=== PATIENT | male | born 1975 | race African-American/Black ===

== ENCOUNTER 2016-11-28 07:29 | Emergency (ER) | payer OTHER ==
[2016-11-28 07:40] VITALS: TEMP 97.8; BMI 25.8
[2016-11-28] MEDS ORDERED: morphine CARPU-JECT 2 MG/1 ML DISP.SYRIN IM ONE ×2 (08:09→08:33)
[2016-11-28] MEDS ORDERED: morphine CARPU-JECT 2 MG/1 ML DISP.SYRIN ONE ×2 (08:11→08:34)
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
[2016-11-28] MEDS ORDERED: TETANUS AND DIPHTHERIA TOXOID 0.5 ML DISP.SYRIN IM ONE (10:26)
[2016-11-28] MEDS ORDERED: morphine CARPU-JECT 4 MG/1 ML DISP.SYRIN IVPUSH ONE (10:28)
[2016-11-28] MEDS ORDERED: morphine CARPU-JECT 4 MG/1 ML DISP.SYRIN ONE (10:45)
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
[2016-11-28 11:42] VITALS: BP 140/70; PULSE 60
== END 2016-11-28 11:42 | disposition home or self-care (01) ==
LOC: JER 07:29
PROC: 3E0234Z Introduction of Serum, Toxoid and Vaccine into Muscle, Percutaneous Approach (ICD-10-PCS; principal; 2016-11-28)
PROC: 3E023NZ Introduction of Analgesics, Hypnotics, Sedatives into Muscle, Percutaneous Approach (ICD-10-PCS; 2016-11-28)
PROC: 3E023NZ Introduction of Analgesics, Hypnotics, Sedatives into Muscle, Percutaneous Approach (ICD-10-PCS; 2016-11-28)
PROC: 3E033NZ Introduction of Analgesics, Hypnotics, Sedatives into Peripheral Vein, Percutaneous Approach (ICD-10-PCS; 2016-11-28)
DX: S99.822A Other specified injuries of left foot, initial encounter (principal); V04.10XA Pedestrian on foot injured in collision with heavy transport vehicle or bus in traffic accident, initial encounter; Y92.414 Local residential or business street as the place of occurrence of the external cause; Y93.89 Activity, other specified; Y99.8 Other external cause status
CPT/HCPCS: 73610-TC-LT; 73630-TC-LT; 73700-TC-RT; 99282-25

== ENCOUNTER 2017-07-12 19:26 | Emergency (ER) | payer OTHER ==
--- NOTE | 2017-07-12 19:45 | PDOC ---
Rapid Medical Evaluation Time Seen by Provider: 07/12/17 19:42 Medical Evaluation: Allergies Allergy/AdvReac Type Severity Reaction Status Date / Time No Known Allergies Allergy Verified 11/28/16 07:33 07/12/17 19:42 pt states "I had a seizure " today. Pt had shortness of breath, numbness to hands and feet . smoke marijuana, rarely use ETOH. no headaches. Pt denies incontinence no seizure history . denies other drug use, this occurred at 4am.
[2017-07-12 19:46] VITALS: BP 117/67; PULSE 83; TEMP 98.1; BMI 26.1
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
[2017-07-12 20:50] LABS: BASOPHIL 1.5 % (0-2.0); EOSINOPHIL 1.4 % (0-4.5); MCH 32.7 pg (25.7-33.7); MEAN CELL VOLUME 93.3 fl (80-96); MEAN PLT VOLUME 8.8 fl (7.5-11.1); NEUTROPHILS 57.1 % (42.8-82.8); PLATELET COUNT 232 K/MM3 (134-434); RDW 13.5 % (11.9-15.9); WHITE BLOOD COUNT 7.6 K/mm3 (4.0-10.0)
[2017-07-12 21:12] LABS: ALBUMIN 3.8 g/dl (3.4-5.0); ANION GAP 8 (8-16); BILIRUBIN,TOTAL 0.6 mg/dL (0.2-1.0); CALCIUM 8.9 mg/dL (8.5-10.1); CO2 29 mmol/L (21-32); CREATININE 0.9 mg/dL (0.7-1.3); GLUCOSE,RANDOM 94 mg/dL (74-106); SGOT/AST 16 U/L (15-37); SGPT/ALT 20 U/L (12-78); TOT PROT 6.7 g/dl (6.4-8.2)
[2017-07-12 21:13] LABS: ALK PHOS 77 U/L (45-117)
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
[2017-07-12 22:53] LABS: CPK 336 IU/L (39-308); TROPONIN I < 0.02 ng/ml (0.00-0.05)
[2017-07-13 00:25] LABS: URINE APPEARANCE CLEAR; URINE BILIRUBIN NEGATIVE (NEGATIVE); URINE BLOOD NEGATIVE (NEGATIVE); URINE COLOR YELLOW; URINE GLUCOSE (UA) NEGATIVE (NEGATIVE); URINE KETONE TRACE (NEGATIVE); URINE NITRITE NEGATIVE (NEGATIVE); URINE PROTEIN NEGATIVE (NEGATIVE); URINE UROBILINOGEN 4.0 E.U/dl mg/dL (0.2-1.0)
[2017-07-13 01:39] LABS: URINE MARIJUANA THC POSITIVE ng/ml (CUTOFF=50)
[2017-07-13 12:48] LABS: URINE LEUK ESTERASE Negative (NEGATIVE)
--- NOTE | 2017-07-14 07:51 | EKG ---
Test Reason : Blood Pressure : / mmHG Vent. Rate : 065 BPM Atrial Rate : 065 BPM P-R Int : 164 ms QRS Dur : 080 ms QT Int : 388 ms P-R-T Axes : 056 050 032 degrees QTc Int : 403 ms NORMAL SINUS RHYTHM NORMAL ECG NO PREVIOUS ECGS AVAILABLE Confirmed by Tommy Eldridge ([id number]) on 07/13/2017 2:47:15 PM Also confirmed by MD Chente, Tommy ([id number]), web editor TOMMY GIRON ([id number]) on 07/14/2017 7:50:46 AM Referred By: Confirmed By:Tommy Eldridge MD
== END 2017-07-13 02:15 | disposition home or self-care (01) ==
LOC: JER 19:26
DX: R55 Syncope and collapse (principal); F17.210 Nicotine dependence, cigarettes, uncomplicated
CPT/HCPCS: 36415; 70450-TC; 71020-TC; 80053; 80307; 81003; 82550; 82553; 84484; 85025; 93005; 93010; 99282-25

== ENCOUNTER 2017-12-12 01:45 | Emergency (ER) | payer OTHER ==
[2017-12-12 02:09] VITALS: BP 134/81; PULSE 82; TEMP 97.6; BMI 27.7
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
[2017-12-12] MEDS ORDERED: ACETAMINOPHEN 500 MG TABLET (FP) PO ONE (02:42)
[2017-12-12] MEDS ORDERED: ACETAMINOPHEN INJECTION 100 ML IVPB ONE (03:02)
[2017-12-12 03:04] LABS: BASO % 1.2 % (0-2.0); EOS % 3.4 % (0-4.5); HEMATOCRIT 41.5 % (35.4-49); HEMOGLOBIN 14.3 GM/dL (11.7-16.9); MCH 32.7 pg (25.7-33.7); MCHC 34.6 g/dl (32.0-35.9); MEAN CELL VOLUME 94.6 fl (80-96); MEAN PLT VOLUME 8.1 fl (7.5-11.1); MONO % 5.9 % (3.8-10.2); NEUT % 49.5 % (42.8-82.8); PLATELET COUNT 254 K/MM3 (134-434); RBC 4.38 M/mm3 (4.00-5.60); RDW 13.3 % (11.9-15.9); WHITE BLOOD COUNT 9.4 K/mm3 (4.0-10.0)
[2017-12-12 03:30] LABS: ALBUMIN 3.7 g/dl (3.4-5.0); ALK PHOS 71 U/L (45-117); ANION GAP 9 (8-16); BILIRUBIN,TOTAL 0.2 mg/dL (0.2-1.0); BLOOD UREA NITROGEN 7 mg/dL (7-18); CALCIUM 8.5 mg/dL (8.5-10.1); CHLORIDE 105 mmol/L (98-107); CO2 30 mmol/L (21-32); CREATININE 0.9 mg/dL (0.7-1.3); GLUCOSE,RANDOM 100 mg/dL (74-106); POTASSIUM 4.1 mmol/L (3.5-5.1); SGOT/AST 10 U/L (15-37); SGPT/ALT 15 U/L (12-78); SODIUM 144 mmol/L (136-145); TOT PROT 6.5 g/dl (6.4-8.2)
[2017-12-12 03:31] LABS: LIPASE 257 U/L (73-393)
[2017-12-12 04:10] LABS: COCAINE, UR POSITIVE ng/ml (CUTOFF=300); METHADONE, UR NEGATIVE ng/ml (CUTOFF=300); OPIATES, URI NEGATIVE ng/ml (CUTOFF=300); PHENCYCLIDINE,URINE NEGATIVE ng/ml (CUTOFF=25); URINE AMPHETAMINES NEGATIVE ng/ml (CUTOFF=500); URINE BARBITURATES NEGATIVE ng/ml (CUTOFF=200); URINE BENZODIAZEPINES NEGATIVE ng/ml (CUTOFF=200)
== END 2017-12-12 05:51 | disposition home or self-care (01) ==
LOC: JER 01:45
DX: G40.909 Epilepsy, unspecified, not intractable, without status epilepticus (principal); R51 Headache
CPT/HCPCS: 36415; 70450-TC; 80053; 80307; 83690; 85025; 99283-25

== ENCOUNTER 2018-05-01 14:52 | Emergency (ER) | payer OTHER ==
[2018-05-01 15:27] VITALS: TEMP 98.1; BMI 26.6
[2018-05-01 16:02] LABS: BASO % 0.3 % (0-2.0); EOS % 1.5 % (0-4.5); HEMATOCRIT 44.8 % (35.4-49); HEMOGLOBIN 15.6 GM/dL (11.7-16.9); LYMPH % 39.2 % (8-40); MCH 32.8 pg (25.7-33.7); MCHC 34.7 g/dl (32.0-35.9); MEAN CELL VOLUME 94.5 fl (80-96); MEAN PLT VOLUME 7.6 fl (7.5-11.1); MONO % 7.7 % (3.8-10.2); NEUT % 51.3 % (42.8-82.8); PLATELET COUNT 337 K/MM3 (134-434); RBC 4.74 M/mm3 (4.00-5.60); RDW 13.2 % (11.9-15.9)
--- NOTE | 2018-05-01 16:05 | PDOC ---
History of Present Illness - General Chief Complaint: Tremors Stated Complaint: FATIGUE Time Seen by Provider: 05/01/18 15:31 History Source: Patient Exam Limitations: No Limitations - History of Present Illness Initial Comments: 05/01/18 16:02 The patient is a 43M with a PMH of seizures on keppra and lamotrigine who presents to the ER with complaints of L elbow shaking and R arm shaking. The patient states that he woke up this morning and began to develop shaking in his L elbow and R arm. He is not sure what is causing his shaking and he denies any exacerbating or alleviating factors. He does admit that sometimes when he is anxious, he feels the worsening of his shaking. He denies fevers, chills, nausea , vomiting, CP, SOB, tingling, or weakness. He states that he has numbness in his hands and feet which is chronic. He admits to smoking marijuana twice a day to "help him calm down". Past History - Past Medical History Allergies/Adverse Reactions: Allergies Allergy/AdvReac Type Severity Reaction Status Date / Time No Known Allergies Allergy Verified 05/01/18 16:16 Home Medications: Ambulatory Orders Lamotrigine [Lamictal -] 200 mg PO BID 05/01/18 levETIRAcetam [Keppra -] 750 mg PO BID 05/01/18 Anemia: No Asthma: No Cancer: No Cardiac Disorders: No CVA: No COPD: No CHF: No Dementia: No Diabetes: No GI Disorders: No Disorders: Yes (colitis) HTN: No Hypercholesterolemia: No Liver Disease: No Seizures: Yes ([facility] 07/25) Thyroid Disease: No - Surgical History Cardiac Surgery: No Cholecystectomy: No Gastric Stapling: No - Immunization History Td Vaccination: Yes (2007) Immunization Up to Date: Yes - Suicide/Smoking/Psychosocial Hx Smoking Status: Yes Smoking History: Current some day smoker Years of Tobacco Use: 25 Have you smoked in the past 12 months: No Number of Cigarettes Smoked Daily: 10 Cigars Per Day: 0 Information on smoking cessation initiated: Yes 'Breaking Loose' booklet given: 04/10/15 Hx Alcohol Use: No Drug/Substance Use Hx: Yes (Marijuana) Substance Use Type: Marijuana Hx Substance Use Treatment: No Review of Systems - Review of Systems Able to Perform ROS?: Yes Comments:: 05/01/18 16:05 GENERAL/CONSTITUTIONAL: No fever or chills. No weakness. HEAD, EYES, EARS, NOSE AND THROAT: No change in vision. No ear pain or discharge. No sore throat. CARDIOVASCULAR: No chest pain, palpitations, or lightheadedness. RESPIRATORY: No cough, wheezing, shortness of breath, or hemoptysis. GASTROINTESTINAL: No nausea, vomiting, diarrhea, constipation, or abdominal pain. GENITOURINARY: No dysuria, frequency, hematuria, or change in urination. MUSCULOSKELETAL: No joint or muscle swelling or pain. No neck or back pain. SKIN: No rash or lesions. NEUROLOGIC: Positive for history or seizures and shaking. No headache, tingling , focal weakness, loss of consciousness, or change in strength/sensation. ENDOCRINE: No increased thirst. No abnormal weight change. HEMATOLOGIC/LYMPHATIC: No anemia, easy bleeding, or history of blood clots. ALLERGIC/IMMUNOLOGIC: No hives or skin allergy. Is the patient limited Scottish proficient: No *Physical Exam - Vital Signs Last Vital Signs Temp Pulse Resp BP Pulse Ox 98.1 F 78 20 103/73 100 05/01/18 15:22 05/01/18 15:22 05/01/18 15:22 05/01/18 15:22 05/01/18 15:22 - Physical Exam Comments: 05/01/18 16:07 GENERAL: Well developed, well nourished. Awake and alert. No acute distress. HEENT: Normocephalic, atraumatic. Hearing grossly normal. Moist mucous membranes. PERRLA, EOMI. No conjunctival pallor. Sclera are non-icteric. NECK: Supple. Full ROM. No JVD. CARDIOVASCULAR: Regular rate and rhythm. No murmurs, rubs, or gallops. PULMONARY: No evidence of respiratory distress. Diffuse rhonchi. ABDOMINAL: Soft. Non-tender. Non-distended. No rebound or guarding. GENITOURINARY: No CVA tenderness bilaterally. MUSCULOSKELETAL: Normal range of motion at all joints. No bony deformities or tenderness. EXTREMITIES: No cyanosis. No clubbing. No edema. No calf tenderness or swelling. SKIN: Warm and dry. Normal capillary refill. No rashes. No jaundice. NEUROLOGICAL: Alert, awake, appropriate. Cranial nerves 2-12 grossly intact. No deficits to light touch and temperature in face, upper extremities and lower extremities. 5/5 strength in deltoids, biceps, triceps, quadriceps, hamstrings, and gastrocnemius. Normal speech. Gait is normal without ataxia. PSYCHIATRIC: Cooperative. Good eye contact. Appropriate mood and affect. ED Treatment Course - LABORATORY CBC & Chemistry Diagram: 05/01/18 15:55 05/01/18 15:55 - RADIOLOGY Radiology Studies Ordered: Category Date Time Status CHEST X-RAY PORTABLE* [RAD] Stat Radiology 05/01/18 15:42 Taken Medical Decision Making - Medical Decision Making 05/01/18 16:10 The patient is a 43M with a PMH of seizures who presents to the ER with complaints of twitching in his wrist and elbows. The patient was noted to stop twitching throughout the history but occasionally twitched on my exam. He admits to taking his medications as prescribed and sees Dr. Taylor for neurology. Will order labs and CXR and d/w Dr. Taylor. 05/01/18 17:23 Dr. Taylor attempted to be reached without success. Pt stable for outpt f/u with Dr. Taylor - he states he has an appointment in 5 days and I have encouraged him to keep the appointment and f/u in our PCP clinic. *DC/Admit/Observation/Transfer Diagnosis at time of Disposition: Tremor - Discharge Dispostion Disposition: HOME Condition at time of disposition: Stable Decision to Admit order: No - Referrals Referrals: Castillo Luque MD [Staff Physician] - Richard Taylor MD [Staff Physician] - - Patient Instructions Printed Discharge Instructions: Seizure Disorder -- Adult Additional Instructions: Please follow up with our primary care clinic in 1-3 days. Keep your appointment with Dr. Taylor on Wednesday. Please return to the ER if you have any signs or symptoms of chest pain, shortness of breath, uncontrollable fever, chills, nausea, vomiting, numbness, tingling, or weakness in any part of your body, changes in vision, or slurred speech. Please take your medications as prescribed. Please return to the ER if symptoms persist, worsen, or new symptoms arise. - Post Discharge Activity
--- NOTE | 2018-05-01 16:21 | PDOC ---
Attending Attestation - Resident Resident Name: CornellcoryNehemias - ED Attending Attestation I have performed the following: I have examined & evaluated the patient, The case was reviewed & discussed with the resident, I agree w/resident's findings & plan, Exceptions are as noted - HPI HPI: 05/01/18 16:17 43-year-old male history of seizure disorder and substance abuse here today complaining of shaking. Patient states he woke up this morning with right arm L Beatriz handshaking he did smoke some leave that may help with the anxiety and tremor. Denies any other drug use has been compliant with his antiepileptics. No seizure-like activity no fevers no chills no other current complaints he follows up neurologist Dr. Kitchen - Physicial Exam PE: 05/01/18 16:17 Patient is sleeping on exam but arousable to voice lungs are clear bilaterally heart is regular without any murmurs rubs or gallops abdomen is soft nontender skin is warm and dry extremities are warm well perfused neurologically the patient is alert and oriented 3 he has 5 out of 5 muscle strength in all 4 extremities there is no appreciated resting tremor or intention tremor noted on exam speech is clear - Medical Decision Making 05/01/18 16:18 Differential diagnosis include side effect of drug use, electrolyte abnormality anxiety hypoglycemia or dehydration plan CBC CMP tox screen EKG IV hydration. If all normal vision currently has no persistent tremor will likely discharge home to follow up with Dr. Kitchen
[2018-05-01 16:32] LABS: ALK PHOS 79 U/L (45-117); ANION GAP 4 MMOL/L (8-16); BILIRUBIN,TOTAL 0.4 mg/dL (0.2-1); BLOOD UREA NITROGEN 10 mg/dL (7-18); CALCIUM 9.1 mg/dL (8.5-10.1); CHLORIDE 105 mmol/L (98-107); CO2 31 mmol/L (21-32); CREATININE 1.1 mg/dL (0.55-1.3); GLUCOSE,RANDOM 62 mg/dL (74-106); POTASSIUM 4.1 mmol/L (3.5-5.1); SGOT/AST 18 U/L (15-37); SGPT/ALT 18 U/L (13-61); SODIUM 140 mmol/L (136-145); TOT PROT 7.6 g/dl (6.4-8.2)
[2018-05-01 17:38] VITALS: BP 118/75; PULSE 68
== END 2018-05-01 17:37 | disposition home or self-care (01) ==
LOC: JER 14:52
DX: R25.1 Tremor, unspecified (principal); G40.909 Epilepsy, unspecified, not intractable, without status epilepticus
CPT/HCPCS: 36415; 71045-TC-FY; 80053; 80175; 85025; 99282-25

== ENCOUNTER 2018-09-05 15:41 | Emergency (ER) | payer SELFPAY ==
[2018-09-05 15:50] VITALS: BMI 31.3
--- NOTE | 2018-09-05 16:54 | PDOC ---
History of Present Illness - General Chief Complaint: Seizure Stated Complaint: Seizure Time Seen by Provider: 09/05/18 16:42 History Source: Patient Exam Limitations: No Limitations, Clinical Condition - History of Present Illness Initial Comments: Jarrod is a 43 yo M w a pmh of seizures on Keppra and lamotrigine who presents to the ER vi EMS stating he is having non-stop seizures all day. He reports his arms, back, head, neck, and legs are all seizing and he is experiencing significant pain because of it. This patient sits still and then when he gets the attention of a doctor he starts "seizing." He shakes his arms and legs when a doctor is looking but when a doctor turns away he stops shaking. He denies fevers, chills, nausea, vomiting, CP, SOB, tingling, or weakness. He states that he has numbness in his hands and feet which is chronic. He admits to smoking marijuana twice a day to "help him calm down". Neurologist: Dr. Aron Joel Hx: Smokes marijuana, denies alcohol or other illicit substances. Allergies: NKA, NKDA PSH: None reported Past History - Past Medical History Allergies/Adverse Reactions: Allergies Allergy/AdvReac Type Severity Reaction Status Date / Time No Known Allergies Allergy Verified 09/05/18 15:50 Home Medications: Ambulatory Orders Lamotrigine [Lamictal -] 200 mg PO BID 05/01/18 levETIRAcetam [Keppra -] 750 mg PO BID 05/01/18 Anemia: No Asthma: No Cancer: No Cardiac Disorders: No CVA: No COPD: No CHF: No Dementia: No Diabetes: No GI Disorders: No Disorders: Yes (colitis) HTN: No Hypercholesterolemia: No Liver Disease: No Psychiatric Problems: Yes (depression, anxiety, suicidal ideation) Seizures: Yes Thyroid Disease: No - Surgical History Cardiac Surgery: No Cholecystectomy: No Gastric Stapling: No - Immunization History Td Vaccination: Yes (2007) Immunization Up to Date: Yes - Suicide/Smoking/Psychosocial Hx Smoking Status: Yes Smoking History: Current every day smoker Years of Tobacco Use: 25 Have you smoked in the past 12 months: No Number of Cigarettes Smoked Daily: 10 Cigars Per Day: 0 Information on smoking cessation initiated: No 'Breaking Loose' booklet given: 04/10/15 Hx Alcohol Use: No Drug/Substance Use Hx: Yes (marijuana) Substance Use Type: Marijuana Hx Substance Use Treatment: No Review of Systems - Review of Systems Able to Perform ROS?: Yes Comments:: CONSTITUTIONAL: Absent: fever, no chills, no fatigue EYES: Absent: visual changes ENT: Absent: ear pain, no sore throat CARDIOVASCULAR: Absent: chest pain, no palpitations RESPIRATORY: Absent: cough, no SOB GI: Absent: abdominal pain, no nausea, no vomiting, no constipation, no diarrhea GENITOURINARY: Absent: dysuria, no frequency, no hematuria MUSKULOSKELETAL: Absent: back pain, no arthralgia, no myalgia SKIN: Absent: rash NEURO: Absent: headache *Physical Exam - Vital Signs Last Vital Signs Temp Pulse Resp BP Pulse Ox 97 F L 76 16 132/80 100 09/05/18 15:45 09/05/18 15:45 09/05/18 15:45 09/05/18 15:45 09/05/18 15:45 - Physical Exam Comments: GENERAL: Well-appearing, well-nourished. No apparent distress. HEENT: Normocephalic, atraumatic. PERRL, EOM intact. CARDIOVASCULAR: Normal S1, S2. Regular rate and rhythm. PULMONARY: Clear to auscultation bilaterally. ABDOMEN: Soft, non-distended, non-tender. EXTREMITIES: Normal ROM in all four extremities. No gross deformities. SKIN: Warm, dry. No rash NEUROLOGICAL: No focal neurological deficits. Moderate Sedation - Procedure Monitoring Vital Signs: Procedure Monitoring Vital Signs Temperature 97 F L 09/05/18 15:45 Pulse Rate 76 09/05/18 15:45 Respiratory Rate 16 09/05/18 15:45 Blood Pressure 132/80 09/05/18 15:45 O2 Sat by Pulse Oximetry (%) 100 09/05/18 15:45 ED Treatment Course - LABORATORY CBC & Chemistry Diagram: 09/05/18 17:04 09/05/18 17:04 Medical Decision Making - Medical Decision Making Jarrod is a 43 yo M w a pmh of seizures on Keppra and lamotrigine who presents to the ER vi EMS stating he is having non-stop seizures all day. He reports his arms, back, head, neck, and legs are all seizing and he is experiencing significant pain because of it. DDx IBNLT: Seizures vs Pseudoseizures, malingering, infection. Plan: Cbc, Cmp, U-tox, EKG, diphenhydramine, ativan, neuroconsult, DC Labs unremarkable EKG normal sinus Spoke [facility] Dr. Taylor who agrees with current plan. He asked to get a U-tox befroe DCing patient. U-tox sent. U-tox positive only for marijuana Will DC patient. *DC/Admit/Observation/Transfer Diagnosis at time of Disposition: Pseudoseizures - Discharge Dispostion Disposition: HOME Condition at time of disposition: Stable Decision to Admit order: No - Referrals Referrals: Med Eldridge MD [Primary Care Provider] - Richard Taylor MD [Staff Physician] - - Patient Instructions Printed Discharge Instructions: DI for Seizure Disorder -- Adult, DI for Psychogenic Nonepileptic Seizures Additional Instructions: You came into the ER with pseudoseizures. Please schedule a follow up appointment with your neurologist and primary care doctor in the next 3 days. Come back to the ER if your pain worsens or you have any other new or worsening concerns. Thank you for coming to the [facility] ER. We hope you feel better soon! Print Language: KOSOVAN - Post Discharge Activity
[2018-09-05 17:49] LABS: BASO % 1.1 % (0-2.0); EOS % 0.3 % (0-4.5); HEMATOCRIT 44.6 % (35.4-49); HEMOGLOBIN 15.4 GM/dL (11.7-16.9); LYMPH % 29.4 % (8-40); MCH 32.3 pg (25.7-33.7); MCHC 34.6 g/dl (32.0-35.9); MEAN CELL VOLUME 93.5 fl (80-96); MEAN PLT VOLUME 8.3 fl (7.5-11.1); MONO % 7.1 % (3.8-10.2); NEUT % 62.1 % (42.8-82.8); PLATELET COUNT 291 K/MM3 (134-434); RBC 4.77 M/mm3 (4.00-5.60)
--- NOTE | 2018-09-05 17:58 | PDOC ---
Attending Attestation - Resident Resident Name: Ramo Fontanez - ED Attending Attestation I have performed the following: I have examined & evaluated the patient, The case was reviewed & discussed with the resident, I agree w/resident's findings & plan, Exceptions are as noted - Physicial Exam PE: 09/05/18 18:13 GENERAL: The patient is awake, alert, Nontoxic - in no acute distress. HEAD: Normocephalic, atraumatic. EYES: extraocular movements intact, sclera anicteric, conjunctiva clear. ENT: Normal voice, Moist mucous membranes. NECK: Normal range of motion, supple LUNGS: Breath sounds equal, clear to auscultation bilaterally. No wheezes, no rhonchi, no rales. HEART: Regular rate and rhythm, normal S1 and S2 without murmur, rub or gallop. ABDOMEN: Soft, nontender, normoactive bowel sounds. No guarding, no rebound. . No CVA tenderness EXTREMITIES: Normal range of motion, no edema. No clubbing or cyanosis. No cords, erythema, or tenderness. NEUROLOGICAL: No facial assymetry, Normal speech, moving all 4 extremities spontaenously and symmetricaly PSYCH: Normal mood, normal affect. SKIN: Warm, Dry, normal turgor, - Medical Decision Making 09/05/18 17:57 43y hx of seizure disorder presenting with complaint of seizure like activity. pt endorses increased pain with his extermities and movement will cause them to shake. denies any fever/chills, headache, neck pain, denies recent drug use 09/05/18 18:20 pt has had several episodes of shaking his body, and various appendages independently, shouting, punching the bed lastng for a few seconds at at omayra. he remains concious during this period. suspect pseudoseizures. will give ativan x 1 willck labs to r/o metabolic dernagement will dfer CT dw dr. servin agree with management if pt better will dc <Casey Menchaca - Last Filed: 09/05/18 18:13> - HPI HPI: 09/05/18 18:30 43y M with hx of seizure disorder (on keppra and lamotrigine) [facility], who presents to the emergency department for evaluation of seizure activity this morning. Pt reports having a seizure at his neurologist office this afternoon ( Dr. Kitchen) which is why he was sent to the ED for further evaluation. Pt reports increasing seizure activity which is why he saw his neurologist today. He reports being compliant with his seizure medications. Patient denies fever, chills, chest pain, coughing, abdominal pain, headache, vision changes, numbness /tingling/weakness, nausea, and vomiting. Pt admits to smoking marijuana earlier today, denies other drug use. Neurologist: Dr. Taylor - Medical Decision Making Documentation prepared by Daniela Travis, acting as medical assisting instructor for Casey Menchaca MD. <Daniela Travis - Last Filed: 09/05/18 18:30> Heart Score/ECG Review - ECG Impressions Comment:: 09/05/18 18:23 Twelve-lead EKG was performed and reviewed by me. There is normal sinus rhythm with a normal rate. rate of 75 The axis is normal. The intervals are normal. There is normal R wave progression There are no ST or T wave abnormalities. Impression: Normal twelve-lead EKG <Casey Menchaca - Last Filed: 09/05/18 18:13>
[2018-09-05 18:06] LABS: ALBUMIN 3.7 g/dl (3.4-5.0); ALK PHOS 78 U/L (45-117); ANION GAP 8 MMOL/L (8-16); BILIRUBIN,TOTAL 0.4 mg/dL (0.2-1); BLOOD UREA NITROGEN 8 mg/dL (7-18); CALCIUM 8.6 mg/dL (8.5-10.1); CHLORIDE 105 mmol/L (98-107); CO2 25 mmol/L (21-32); CREATININE 1.1 mg/dL (0.55-1.3); GLUCOSE,RANDOM 105 mg/dL (74-106); POTASSIUM 3.8 mmol/L (3.5-5.1); SGOT/AST 10 U/L (15-37); SGPT/ALT 16 U/L (13-61); SODIUM 138 mmol/L (136-145); TOT PROT 6.9 g/dl (6.4-8.2)
[2018-09-05] MEDS ORDERED: LORazepam 2 MG/ML SDV VIAL ONE (18:14)
[2018-09-05 21:30] LABS: COCAINE, UR NEGATIVE ng/ml (CUTOFF=300); METHADONE, UR NEGATIVE ng/ml (CUTOFF=300); OPIATES, URI NEGATIVE ng/ml (CUTOFF=300); PHENCYCLIDINE,URINE NEGATIVE ng/ml (CUTOFF=25); URINE AMPHETAMINES NEGATIVE ng/ml (CUTOFF=500); URINE BARBITURATES NEGATIVE ng/ml (CUTOFF=200); URINE BENZODIAZEPINES NEGATIVE ng/ml (CUTOFF=200)
[2018-09-05 23:38] VITALS: BP 115/58; PULSE 75; TEMP 97.9
--- NOTE | 2018-09-06 12:17 | EKG ---
Test Reason : Blood Pressure : / mmHG Vent. Rate : 075 BPM Atrial Rate : 075 BPM P-R Int : 154 ms QRS Dur : 084 ms QT Int : 380 ms P-R-T Axes : 066 058 030 degrees QTc Int : 424 ms NORMAL SINUS RHYTHM NORMAL ECG Confirmed by MD FRANCIS GREGORY ([id number]) on 09/06/2018 12:16:46 PM Referred By: Confirmed By:GUS FRANCIS MD
== END 2018-09-05 22:10 | disposition home or self-care (01) ==
LOC: JER 15:41
PROC: 3E033GC Introduction of Other Therapeutic Substance into Peripheral Vein, Percutaneous Approach (ICD-10-PCS; principal; 2018-09-05)
PROC: 3E033NZ Introduction of Analgesics, Hypnotics, Sedatives into Peripheral Vein, Percutaneous Approach (ICD-10-PCS; 2018-09-05)
DX: G40.909 Epilepsy, unspecified, not intractable, without status epilepticus (principal)
CPT/HCPCS: 36415; 80053; 80307; 85025; 93005; 93010; 99284-25

== ENCOUNTER 2018-11-16 19:05 | Emergency (ER) | payer OTHER ==
[2018-11-16 19:17] VITALS: BP 124/85; PULSE 78; TEMP 98.2; BMI 25.1
[2018-11-16] MEDS ORDERED: CYCLOBENZAPRINE HCL 10 MG TABLET (FP) PO ONE (19:17)
[2018-11-16] MEDS ORDERED: KETOROLAC TROMETHAMINE 60 MG/2 ML VIAL IM ONE (19:17)
[2018-11-16] MEDS ORDERED: KETOROLAC TROMETHAMINE 60 MG/2 ML VIAL ONE (20:32)
[2018-11-16] MEDS ORDERED: CYCLOBENZAPRINE HCL 10 MG TABLET (FP) ONE (20:32)
--- NOTE | 2018-11-16 20:52 | PDOC ---
History of Present Illness - General Chief Complaint: Back Pain Stated Complaint: BREATHING PROBLEMS Time Seen by Provider: 11/16/18 19:16 - History of Present Illness Initial Comments: 11/16/18 20:49 43-year-old male with a past medical history significant for epilepsy presents for upper back pain 3 days without systemic symptoms. No radiation of symptoms Past History - Past Medical History Allergies/Adverse Reactions: Allergies Allergy/AdvReac Type Severity Reaction Status Date / Time No Known Allergies Allergy Verified 11/16/18 19:17 Home Medications: Ambulatory Orders Lamotrigine [Lamictal -] 200 mg PO BID 05/01/18 levETIRAcetam [Keppra -] 750 mg PO BID 05/01/18 Cyclobenzaprine HCl [Flexeril 10 mg] 10 mg PO HS PRN #10 tablet 11/16/18 Ibuprofen [Motrin -] 600 mg PO TID #30 tablet 11/16/18 Anemia: No Asthma: No Cancer: No Cardiac Disorders: No CVA: No COPD: No CHF: No Dementia: No Diabetes: No GI Disorders: No Disorders: Yes (colitis) HTN: No Hypercholesterolemia: No Liver Disease: No Psychiatric Problems: Yes (depression, anxiety, suicidal ideation) Seizures: Yes Thyroid Disease: No - Surgical History Cardiac Surgery: No Cholecystectomy: No Gastric Stapling: No - Immunization History Td Vaccination: Yes (2007) Immunization Up to Date: Yes - Suicide/Smoking/Psychosocial Hx Smoking Status: Yes Smoking History: Never smoked Years of Tobacco Use: 25 Have you smoked in the past 12 months: No Number of Cigarettes Smoked Daily: 10 Cigars Per Day: 0 'Breaking Loose' booklet given: 04/10/15 Hx Alcohol Use: No Drug/Substance Use Hx: Yes (marijuana) Substance Use Type: Marijuana Hx Substance Use Treatment: No Review of Systems - Review of Systems Musculoskeletal: Yes: See HPI, Back Pain *Physical Exam - Vital Signs Last Vital Signs Temp Pulse Resp BP Pulse Ox 98.2 F 78 22 H 124/85 99 11/16/18 19:15 11/16/18 19:15 11/16/18 19:15 11/16/18 19:15 11/16/18 19:15 - Physical Exam Comments: 11/16/18 20:49 Thoracic spine skin color and temperature normal range of motion is limited. There is no midline tenderness. There is moderate spasm and tenderness about the left parathoracic musculature. No gross sensorimotor deficits in bilateral upper extremities. Neurovascularly intact. ED Treatment Course - Medications Given in the ED: ED Medications Discontinued Medications Generic Name Dose Route Start Last Admin Trade Name Freq PRN Reason Stop Dose Admin Cyclobenzaprine HCl 5 mg 11/16/18 19:17 11/16/18 20:38 Flexeril - PO 11/16/18 19:18 5 mg ONCE ONE Administration Ketorolac Tromethamine 60 mg 11/16/18 19:17 11/16/18 20:39 Toradol Injection - IM 11/16/18 19:18 60 mg ONCE ONE Administration Medical Decision Making - Medical Decision Making 11/16/18 20:50 Thoracic spine strain, patient feels this may have occurred during a seizure. I will treat him with Flexeril and Motrin and have him follow-up with orthopedic surgery *DC/Admit/Observation/Transfer Diagnosis at time of Disposition: Strain of thoracic spine - Discharge Dispostion Disposition: HOME Condition at time of disposition: Stable Decision to Admit order: No - Prescriptions Prescriptions: Cyclobenzaprine HCl [Flexeril 10 mg] 10 mg PO HS PRN #10 tablet PRN Reason: Muscle Spasms Ibuprofen [Motrin -] 600 mg PO TID #30 tablet - Referrals Referrals: Talat Singh MD [Staff Physician] - - Patient Instructions Printed Discharge Instructions: DI for Back Strain or Sprain Additional Instructions: Please take the Motrin as directed one tablet 3 times a day with food and discontinue the medication if it bothers her stomach. The muscle relaxers one tablet before bedtime. Will make you sleepy. Return to the emergency room for worsening symptoms and follow-up with orthopedic spine surgery in 1-2 days for further evaluation and treatment options. - Post Discharge Activity
== END 2018-11-16 20:54 | disposition home or self-care (01) ==
LOC: JERFT 19:05
PROC: 3E0233Z Introduction of Anti-inflammatory into Muscle, Percutaneous Approach (ICD-10-PCS; principal; 2018-11-16)
DX: S29.012A Strain of muscle and tendon of back wall of thorax, initial encounter (principal); Z72.0 Tobacco use; R45.851 Suicidal ideations; X58.XXXA Exposure to other specified factors, initial encounter; Y92.89 Other specified places as the place of occurrence of the external cause; F41.8 Other specified anxiety disorders; Y93.89 Activity, other specified
CPT/HCPCS: 71046-TC-FY; 99281-25

== ENCOUNTER 2022-10-27 00:03 | Emergency (ER) | payer OTHER ==
[2022-10-27 00:13] VITALS: BP 128/79; PULSE 85; RESP 18; BMI 27.5
[2022-10-27 00:16] VITALS: TEMP 98.4
== END 2022-10-27 04:12 | disposition home or self-care (01) ==
LOC: JER 00:03
DX: L76.22 Postprocedural hemorrhage of skin and subcutaneous tissue following other procedure (principal)
CPT/HCPCS: 99282-25